=== PATIENT | female | born 2000 | race Caucasian/White ===

== ENCOUNTER 2021-03-10 09:35 | Day surgery (SDC) | payer OTHER, SELFPAY ==
[~2021-03-10] VITALS: Ht 157.5 cm; Wt 68.0 kg
[2021-03-10 10:37] LABS: BASOPHILS % (AUTO) 0.3 % (0.0-2.0); EOSINOPHILS # (AUTO) 0.2 K/uL (0-0.4); EOSINOPHILS % (AUTO) 1.5 % (0.0-4.0); HEMATOCRIT 36.1 % (36-48); HEMOGLOBIN 12.1 g/dL (12.0-16.0); LYMPHOCYTES # (AUTO) 2.5 K/uL (2.5-16.5); LYMPHOCYTES % (AUTO) 19.4 % (20.5-51.1); MEAN CORPUSCULAR HEMOGLOBIN 28 pg (27-31); MEAN CORPUSCULAR HGB CONC 34 g/dL (33-37); MEAN CORPUSCULAR VOLUME 83.9 fL (80-94); MONOCYTES % (AUTO) 7.4 % (1.7-9.3); NEUTROPHILS # (AUTO) 9.2 K/uL (1.8-7.7); NEUTROPHILS % (AUTO) 71.4 % (42.2-75.2); PLATELET COUNT (AUTO) 254 K/uL (140-450); RED CELL DISTRIBUTION WIDTH 13.1 % (11.6-13.7); WHITE BLOOD COUNT (AUTO) 12.9 K/uL (4.5-11.0)
[2021-03-10] MEDS ORDERED: fentaNYL citrate 0.05 MG/ML VIAL ONE (10:48)
[2021-03-10] MEDS ORDERED: LIDOCAINE 1% 500 MG/50 ML VIAL ONE (10:49)
[2021-03-10 11:06] LABS: PROTHROMBIN TIME 10.2 secs (10.8-13.4)
[2021-03-10] MEDS ORDERED: MORPHINE SULFATE 2 MG/ML SYR IM SCH (11:35)
[2021-03-10] MEDS ORDERED: MORPHINE SULFATE 2 MG/ML SYR IM ONE (12:20)
== END 2021-03-10 12:35 | disposition home or self-care (01) ==
LOC: MDS 09:35 → MMU 09:36 → MDS 12:35
PROVIDERS: ATTEND Internal Medicine Gastroenterology
DX: K76.0 Fatty (change of) liver, not elsewhere classified (principal); Z79.899 Other long term (current) drug therapy; Z20.822 Contact with and (suspected) exposure to COVID-19
CPT/HCPCS: 36415; 47000; 76942; 85025; 85610; 85730; 87426; J2001; J2270; Q0092; J3010